=== PATIENT | female | born 1985 | race Hispanic/Latino ===

== ENCOUNTER 2024-04-01 23:00 | Emergency (ER) | payer SELFPAY | END 2024-04-02 03:43 | disposition home or self-care (01) | LOC: CSHERS 23:00 | DX: T78.3XXA Angioneurotic edema, initial encounter (principal); E11.9 Type 2 diabetes mellitus without complications; Z79.84 Long term (current) use of oral hypoglycemic drugs | CPT/HCPCS: 99283 ==